=== PATIENT | female | born 1980 | race African-American/Black ===

== ENCOUNTER 2018-03-05 08:58 | Inpatient (IN) | payer OTHER ==
[2018-03-05 09:10] VITALS: BMI 39.1
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
[2018-03-05] MEDS ORDERED: MAGNESIUM HYDROX 2400MG/30ML ORAL SUSPENSION 30 ML CUP PO PRN (10:20)
[2018-03-05] MEDS ORDERED: MAGNESIUM CITRATE 300 ML BOTTLE PO PRN (10:20)
[2018-03-05] MEDS ORDERED: chlordiazePOXIDE HCL 25 MG CAPSULE PO PRN (10:20)
[2018-03-05] MEDS ORDERED: ACETAMINOPHEN 325 MG TABLET (FP) PO PRN (10:20)
[2018-03-05] MEDS ORDERED: MENTHOL/PHENOL 1 EACH UD MM PRN (10:20)
[2018-03-05] MEDS ORDERED: hydrOXYzine PAMOATE 50 MG CAPSULE (FP) PO PRN (10:20)
[2018-03-05] MEDS ORDERED: MAG HYDROX/AL HYDROX/SIMETH 30 ML UNIT-DOSE CUP PO PRN (10:20)
[2018-03-05] MEDS ORDERED: IBUPROFEN 400 MG TABLET (FP) PO PRN (10:20)
[2018-03-05] MEDS ORDERED: P-EPHED 60MG/TRIPROLIDI 2.5MG TABLET PO PRN (10:20)
[2018-03-05] MEDS ORDERED: LOPERAMIDE HCL 2 MG CAPSULE PO PRN (10:20)
[2018-03-05] MEDS ORDERED: guaiFENesin/D-METHORPHAN HB 10 ML UNIT-DOSE CUPS PO PRN (10:20)
--- NOTE | 2018-03-05 10:38 | CONSULT ---
[facility] Psychiatric Consult - Data Date of interview: 03/05/18 Admission source: [facility] Identifying data: This is a 37 years old obese female, single, homeless, on SSI support, with history of Schizophrenia. Bipolar Disorder, with psychiatric hopitalization hstirry, with alcohol and cocaine dependence,requesting detox, reporting withdrawal symptoms, Substance Abuse History: Smoking history: Current every day smoker. Have you smoked in the past 12 months: Yes. Aproximately how many cigarettes per day: 6. Cigars Per Day: 0. Hx Chewing Tobacco Use: No. Initiated information on smoking cessation: Yes. 'Breaking Loose' booklet given: 03/05/18. - Substance & Tx. History. Hx Alcohol Use: Yes. Hx Substance Use: Yes. Substance Use Type : Alcohol, Cocaine. Hx Substance Use Treatment: Yes (last 2013 [facility]). - Substances Abused. Alcohol. Route: Oral. Frequency: Daily. Amount used : 1 pint of liquor. Age of first use: 18. Date of Last Use: 03/04/18. Cocaine. Route: Smoking. Frequency: Daily. Amount used: 30$. Age of first use: 20. Date of Last Use: 03/04/18 Medical History: DM-II, Obesity Psychiatric History: Patient reports to carry Bypolar disorder/Schizohrenia, reports most recent psychiatric admission on 2018 at [facility], reportsmcurrently taking: Depakote 250mg po bid. [id number] po bid. Fanapt 4mg poqd, 8mg po qhs Physical/Sexual Abuse/Trauma History: Unclear Additional Comment: Depakote 250mg po bid. [id number] po bid. Fanapt 4mg poqd , 8mg po qhs Mental Status Exam - Mental Status Exam Alert and Oriented to: Person Cognitive Function: Fair Patient Appearance: Unkempt Mood: Suspicious, Anxious Affect: Constricted Patient Behavior: Cooperative Speech Pattern: Delayed Voice Loudness: Mildly Soft/Quiet Thought Process: Circumstantial Thought Disorder: Being Controlled Hallucinations: Denies Suicidal Ideation: Denies Insight/Judgement: Fair Sleep: Difficulty falling asleep Appetite: Weight gain Muscle strength/Tone: Mild Hypotonicity Gait/Station: Shuffling Additional Comments: Depakote 250mg po bid. [id number] po bid. Fanapt 4mg poqd, 8mg po qhs Psychiatric Findings - Problem List ([place] 1, 2,3) (1) Alcohol dependence with uncomplicated withdrawal Current Visit: Yes Status: Acute (2) Bipolar disorder Current Visit: Yes Status: Acute (3) Cocaine dependence Current Visit: Yes Status: Acute (4) Nicotine dependence Current Visit: Yes Status: Acute (5) Schizophrenia Current Visit: Yes Status: Acute - Initial Treatment Plan Initial Treatment Plan: Depakote 250mg po bid. [id number] po bid. Fanapt 4mg poqd, 8mg po qhs
[2018-03-05] MEDS ORDERED: HALOPERIDOL 5 MG TABLET (FP) PO PRN (11:35)
[2018-03-05] MEDS: chlordiazePOXIDE HCL 25 MG CAPSULE PO SCH ×3 (11:47→22:57)
[2018-03-05] MEDS: NICOTINE 21 MG/24 HOURS TOPICAL PATCH TD SCH (11:50)
--- NOTE | 2018-03-05 14:14 | EKG ---
Test Reason : Blood Pressure : / mmHG Vent. Rate : 063 BPM Atrial Rate : 063 BPM P-R Int : 188 ms QRS Dur : 088 ms QT Int : 394 ms P-R-T Axes : 062 069 068 degrees QTc Int : 403 ms NORMAL SINUS RHYTHM WITH SINUS ARRHYTHMIA NORMAL ECG NO PREVIOUS ECGS AVAILABLE Confirmed by LATRICIA ANNE, BHAVYA ([id number]) on 03/05/2018 2:14:11 PM Referred By: Confirmed By:BHAVYA ROME MD
[2018-03-05] MEDS: DIVALPROEX SODIUM 250 MG TABLET E.C. PO SCH ×2 (14:51→22:56)
[2018-03-05] MEDS: BENZTROPINE MESYLATE 1 MG TABLET (FP) PO SCH ×2 (14:51→22:56)
[2018-03-05] MEDS: metFORMIN HCL 500 MG TABLET (FP) PO SCH (18:23)
[2018-03-05 21:30] LABS: URINE APPEARANCE CLEAR; URINE BILIRUBIN NEGATIVE (<2.0 mg/dL); URINE COLOR LTYELLOW; URINE GLUCOSE (UA) NEGATIVE (NEGATIVE); URINE KETONE NEGATIVE (NEGATIVE); URINE LEUK ESTERASE NEGATIVE (NEGATIVE); URINE NITRITE NEGATIVE (NEGATIVE); URINE PROTEIN NEGATIVE (NEGATIVE); URINE UROBILINOGEN NEGATIVE mg/dL (0.2-1.0)
[2018-03-05] MEDS ORDERED: MELATONIN 5 MG TABLETS PO PRN (22:00)
[2018-03-05] MEDS: CALCIUM (OYSTER SHELL) 500 MG TABLET (FP) PO SCH (22:56)
[2018-03-05] MEDS: THIAMINE HCL 100 MG TABLET (FP) PO SCH (22:56)
[2018-03-06] MEDS: chlordiazePOXIDE HCL 25 MG CAPSULE PO SCH ×4 (05:41→23:59)
[2018-03-06] MEDS: metFORMIN HCL 500 MG TABLET (FP) PO SCH ×2 (08:00→17:23)
[2018-03-06 10:04] LABS: HEMOGLOBIN 12.1 GM/dL (10.7-15.3); MCHC 32.6 g/dl (32.0-36.0); MEAN CELL VOLUME 98.4 fl (80-96); MEAN PLT VOLUME 10.2 fl (7.5-11.1); PLATELET COUNT 241 K/MM3 (134-434); RBC 3.76 M/mm3 (3.60-5.2); RDW 13.1 % (11.6-15.6); WHITE BLOOD COUNT 5.7 K/mm3 (4.0-10.0)
[2018-03-06 10:52] LABS: ALBUMIN 3.2 g/dl (3.4-5.0); ALK PHOS 74 U/L (45-117); ANION GAP 5 MMOL/L (8-16); BILIRUBIN,TOTAL 0.6 mg/dL (0.2-1); BLOOD UREA NITROGEN 11 mg/dL (7-18); CALCIUM 8.8 mg/dL (8.5-10.1); CHLORIDE 106 mmol/L (98-107); CO2 29 mmol/L (21-32); CREATININE 0.7 mg/dL (0.55-1.3); GLUCOSE,RANDOM 79 mg/dL (74-106); SGOT/AST 9 U/L (15-37); SGPT/ALT 15 U/L (13-61); SODIUM 140 mmol/L (136-145); TOT PROT 7.1 g/dl (6.4-8.2)
[2018-03-06] MEDS: DIVALPROEX SODIUM 250 MG TABLET E.C. PO SCH ×2 (11:12→23:01)
[2018-03-06] MEDS: ATORVASTATIN CA 20 MG TABLET (FP) PO SCH (11:13)
[2018-03-06] MEDS: BENZTROPINE MESYLATE 1 MG TABLET (FP) PO SCH ×2 (11:13→23:02)
[2018-03-06] MEDS: PRENATAL VITAMINS W/ FOLIC ACID TABLET (FP) PO SCH (11:13)
[2018-03-06] MEDS: ASPIRIN COATED 81 MG TABLET.EC PO SCH (11:14)
[2018-03-06] MEDS: NICOTINE 21 MG/24 HOURS TOPICAL PATCH TD SCH (11:14)
[2018-03-06] MEDS: CALCIUM (OYSTER SHELL) 500 MG TABLET (FP) PO SCH ×2 (11:15→23:02)
--- NOTE | 2018-03-06 12:56 | PN ---
S CIWA - CIWA Score Nausea/Vomitin-Mild Nausea/No Vomiting Muscle Tremors: 1-None Visible, but [place] Anxiety: 1-Mildly Anxious Agitation: 1-Slight > Activity Paroxysmal Sweats: No Perspiration Orientation: 0-Oriented Tacttile Disturbances: 0-None Auditory Disturbances: 0-None Visual Disturbances: 0-None Headache: 0-None Present CIWA-Ar Total Score: 4 BHS Progress Note (SOAP) Subjective: Pt states overall doing OK. Admitted yesterday Vital Signs - 24 hr 03/05/18 03/05/18 03/06/18 13:12 17:47 00:30 Temperature 97.9 F 98.2 F Pulse Rate 75 93 H Respiratory 18 18 20 Rate Blood Pressure 118/71 148/79 03/06/18 03/06/18 07:26 09:29 Temperature 98.1 F 98.1 F Pulse Rate 93 H 103 H Respiratory 20 16 Rate Blood Pressure 132/70 122/77 Laboratory Tests 03/05/18 03/05/18 03/05/18 10:29 14:30 16:31 WBC RBC Hgb Hct MCV MCH MCHC RDW Plt Count MPV Sodium Potassium Chloride Carbon Dioxide Anion Gap BUN Creatinine Creat Clearance w eGFR POC Glucometer 127 131 Random Glucose Calcium Total Bilirubin AST ALT Alkaline Phosphatase Total Protein Albumin Urine Color Ltyellow Urine Appearance Clear Urine pH 6.0 Ur Specific [place] 1.023 Urine Protein Negative Urine Glucose (UA) Negative Urine Ketones Negative Urine Blood Negative Urine Nitrite Negative Urine Bilirubin Negative Urine Urobilinogen Negative Ur Leukocyte Esterase Negative Valproic Acid RPR Titer 03/06/18 03/06/18 03/06/18 05:43 06:30 06:30 WBC 5.7 RBC 3.76 Hgb 12.1 Hct 37.0 MCV 98.4 H MCH 32.0 MCHC 32.6 RDW 13.1 Plt Count 241 MPV 10.2 Sodium 140 Potassium 6.0 H Chloride 106 Carbon Dioxide 29 Anion Gap 5 L BUN 11 Creatinine 0.7 Creat Clearance w eGFR > 60 POC Glucometer 99 Random Glucose 79 Calcium 8.8 Total Bilirubin 0.6 AST 9 L ALT 15 Alkaline Phosphatase 74 Total Protein 7.1 Albumin 3.2 L Urine Color Urine Appearance Urine pH Ur Specific [place] Urine Protein Urine Glucose (UA) Urine Ketones Urine Blood Urine Nitrite Urine Bilirubin Urine Urobilinogen Ur Leukocyte Esterase Valproic Acid RPR Titer probably hemolyzed potassium 03/06/18 03/06/18 06:30 06:30 WBC RBC Hgb Hct MCV MCH MCHC RDW Plt Count MPV Sodium Potassium Chloride Carbon Dioxide Anion Gap BUN Creatinine Creat Clearance w eGFR POC Glucometer Random Glucose Calcium Total Bilirubin AST ALT Alkaline Phosphatase Total Protein Albumin Urine Color Urine Appearance Urine pH Ur Specific [place] Urine Protein Urine Glucose (UA) Urine Ketones Urine Blood Urine Nitrite Urine Bilirubin Urine Urobilinogen Ur Leukocyte Esterase Valproic Acid 14.0 L RPR Titer Nonreactive Aaa/Plan: admitted for alcohol/cocaine use disorder: continue alcohol detox protocol
[2018-03-06] MEDS ORDERED: SODIUM POLYSTYRENE SULFONATE 15 GM/60 ML BOTTLE PO ONE (16:02)
[2018-03-06] MEDS: THIAMINE HCL 100 MG TABLET (FP) PO SCH (23:58)
[2018-03-07] MEDS: chlordiazePOXIDE HCL 25 MG CAPSULE PO SCH (07:07)
[2018-03-07] MEDS: metFORMIN HCL 500 MG TABLET (FP) PO SCH ×2 (07:09→16:03)
--- NOTE | 2018-03-07 09:44 | PN ---
[facility] CIWA - CIWA Score Nausea/Vomitin Muscle Tremors: 2 Anxiety: 2 Agitation: 2 Paroxysmal Sweats: 2 Orientation: 0-Oriented Tacttile Disturbances: 1-Very Mild Itch/Numbness Auditory Disturbances: 0-None Visual Disturbances: 0-None Headache: 1-Very Mild CIWA-Ar Total Score: 12 S Progress Note (SOAP) Subjective: Interrupted sleep, restlessness and fatigue Objective: 03/07/18 09:40 Vital Signs 03/07/18 03/07/18 03/07/18 03:30 06:00 09:17 Temperature 97.7 F 98.4 F Pulse Rate 76 93 H Respiratory 16 20 18 Rate Blood Pressure 137/87 138/80 Laboratory Last Values WBC 5.7 K/mm3 (4.0-10.0) 03/06/18 06:30 RBC 3.76 M/mm3 (3.60-5.2) 03/06/18 06:30 Hgb 12.1 GM/dL (10.7-15.3) 03/06/18 06:30 Hct 37.0 % (32.4-45.2) 03/06/18 06:30 MCV 98.4 fl (80-96) H 03/06/18 06:30 MCH 32.0 pg (25.7-33.7) 03/06/18 06:30 MCHC 32.6 g/dl (32.0-36.0) 03/06/18 06:30 RDW 13.1 % (11.6-15.6) 03/06/18 06:30 Plt Count 241 K/MM3 (134-434) 03/06/18 06:30 MPV 10.2 fl (7.5-11.1) 03/06/18 06:30 Sodium 140 mmol/L (136-145) 03/06/18 06:30 Potassium 6.0 mmol/L (3.5-5.1) H 03/06/18 06:30 Chloride 106 mmol/L (98-107) 03/06/18 06:30 Carbon Dioxide 29 mmol/L (21-32) 03/06/18 06:30 Anion Gap 5 MMOL/L (8-16) L 03/06/18 06:30 BUN 11 mg/dL (7-18) 03/06/18 06:30 Creatinine 0.7 mg/dL (0.55-1.3) 03/06/18 06:30 Creat Clearance w eGFR > 60 (>60) 03/06/18 06:30 POC Glucometer 104 UNITS (80-120) 03/07/18 05:37 Random Glucose 79 mg/dL (74-106) 03/06/18 06:30 Calcium 8.8 mg/dL (8.5-10.1) 03/06/18 06:30 Total Bilirubin 0.6 mg/dL (0.2-1) 03/06/18 06:30 AST 9 U/L (15-37) L 03/06/18 06:30 ALT 15 U/L (13-61) 03/06/18 06:30 Alkaline Phosphatase 74 U/L (45-117) 03/06/18 06:30 Total Protein 7.1 g/dl (6.4-8.2) 03/06/18 06:30 Albumin 3.2 g/dl (3.4-5.0) L 03/06/18 06:30 Urine Color Ltyellow 03/05/18 14:30 Urine Appearance Clear 03/05/18 14:30 Urine pH 6.0 (5.0-8.0) 03/05/18 14:30 Ur Specific [place] 1.023 (1.010-1.035) 03/05/18 14:30 Urine Protein Negative (NEGATIVE) 03/05/18 14:30 Urine Glucose (UA) Negative (NEGATIVE) 03/05/18 14:30 Urine Ketones Negative (NEGATIVE) 03/05/18 14:30 Urine Blood Negative (NEGATIVE) 03/05/18 14:30 Urine Nitrite Negative (NEGATIVE) 03/05/18 14:30 Urine Bilirubin Negative (<2.0 mg/dL) 03/05/18 14:30 Urine Urobilinogen Negative mg/dL (0.2-1.0) 03/05/18 14:30 Ur Leukocyte Esterase Negative (NEGATIVE) 03/05/18 14:30 Valproic Acid 14.0 ug/ml (50-100) L 03/06/18 06:30 RPR Titer Nonreactive (NONREACTIVE) 03/06/18 06:30 Labs noted Alert, denies palpitation or any cardiac related symptoms Assessment: 03/07/18 09:42 Withdrawal sx Hyperkalemia possibly due to hemolysis Plan: BMP reordered, results pending Continue detox
[2018-03-07] MEDS: ASPIRIN COATED 81 MG TABLET.EC PO SCH (10:24)
[2018-03-07] MEDS: BENZTROPINE MESYLATE 1 MG TABLET (FP) PO SCH ×2 (10:24→23:05)
[2018-03-07] MEDS: PRENATAL VITAMINS W/ FOLIC ACID TABLET (FP) PO SCH (10:24)
[2018-03-07] MEDS: DIVALPROEX SODIUM 250 MG TABLET E.C. PO SCH ×2 (10:24→23:07)
[2018-03-07] MEDS: CALCIUM (OYSTER SHELL) 500 MG TABLET (FP) PO SCH ×2 (10:24→23:07)
[2018-03-07] MEDS: chlordiazePOXIDE 5 MG CAPSULE PO SCH ×3 (10:24→23:07)
[2018-03-07] MEDS: NICOTINE 21 MG/24 HOURS TOPICAL PATCH TD SCH (10:25)
[2018-03-07] MEDS: ATORVASTATIN CA 20 MG TABLET (FP) PO SCH (10:28)
--- NOTE | 2018-03-07 11:37 | PN ---
[facility] Progress Note Note: Patient is examined following a fall this morning. As per report, she was walking in the hallway when she fell. While going down, she hit her head against the wall as seen on camera although patient claims otherwise. PE HEENT: No bumps or bruises to scalp, others unremarkable Chest: Respirations non-labored Extremities:FROM, continues to ambulate without difficulty Skin:No lacerations or tears Neuro:A&0x3, no focal deficits A/P Fall, unwitnessed, review of camera shows patient hitting head on her way down. As per facility protocol, will transfer patient to ED for possible CT scan of head. Patient informed and agrees with POC.
[2018-03-07] MEDS: THIAMINE HCL 100 MG TABLET (FP) PO SCH (23:05)
[2018-03-08] MEDS: chlordiazePOXIDE 5 MG CAPSULE PO SCH (05:10)
[2018-03-08 07:32] VITALS: TEMP 98.2
[2018-03-08] MEDS: metFORMIN HCL 500 MG TABLET (FP) PO SCH (07:34)
--- NOTE | 2018-03-08 09:08 | DS ---
[facility] Detox Discharge Summary Admission Date: 03/05/18 Discharge Date: 03/08/18 - History Present History: Alcohol Dependence Additional Comments: 37 years old female admitted on 03/05/18 for alcohol withdrawal sx insists to leave the detox unit today without apparent reason alert oriented x 3 no acute distress, denies pain denies suicidal denies homocidal no self destructive behavior had showered and 90% breakfast Pertinent Past History: strong recommend community self help group and meeting suggesting go to ER and present lab report of K+ elevation patient wants to leave and agrees to consider ER if necessary and community 12 stepts offer alternative for alcohol withdrawal sx, "it is not that" patient insists to leave the detox unit speech clearly coherently steady gait - Physical Exam Results Vital Signs: Vital Signs Temperature 98.2 F 03/08/18 07:05 Pulse Rate 102 H 03/08/18 07:05 Respiratory Rate 20 03/08/18 07:05 Blood Pressure 113/68 03/08/18 07:05 O2 Sat by Pulse Oximetry (%) Pertinent Admission Physical Exam Findings: alcohol withdrawal sx Vital Signs Temperature 98.2 F 03/08/18 09:48 Pulse Rate 87 03/08/18 09:48 Respiratory Rate 18 03/08/18 09:48 Blood Pressure 113/64 03/08/18 09:48 O2 Sat by Pulse Oximetry (%) Laboratory Last Values WBC 5.7 K/mm3 (4.0-10.0) 03/06/18 06:30 RBC 3.76 M/mm3 (3.60-5.2) 03/06/18 06:30 Hgb 12.1 GM/dL (10.7-15.3) 03/06/18 06:30 Hct 37.0 % (32.4-45.2) 03/06/18 06:30 MCV 98.4 fl (80-96) H 03/06/18 06:30 MCH 32.0 pg (25.7-33.7) 03/06/18 06:30 MCHC 32.6 g/dl (32.0-36.0) 03/06/18 06:30 RDW 13.1 % (11.6-15.6) 03/06/18 06:30 Plt Count 241 K/MM3 (134-434) 03/06/18 06:30 MPV 10.2 fl (7.5-11.1) 03/06/18 06:30 Sodium 140 mmol/L (136-145) 03/06/18 06:30 Potassium 6.0 mmol/L (3.5-5.1) H 03/06/18 06:30 Chloride 106 mmol/L (98-107) 03/06/18 06:30 Carbon Dioxide 29 mmol/L (21-32) 03/06/18 06:30 Anion Gap 5 MMOL/L (8-16) L 03/06/18 06:30 BUN 11 mg/dL (7-18) 03/06/18 06:30 Creatinine 0.7 mg/dL (0.55-1.3) 03/06/18 06:30 Creat Clearance w eGFR > 60 (>60) 03/06/18 06:30 POC Glucometer 94 UNITS (80-120) 03/08/18 05:12 Random Glucose 79 mg/dL (74-106) 03/06/18 06:30 Calcium 8.8 mg/dL (8.5-10.1) 03/06/18 06:30 Total Bilirubin 0.6 mg/dL (0.2-1) 03/06/18 06:30 AST 9 U/L (15-37) L 03/06/18 06:30 ALT 15 U/L (13-61) 03/06/18 06:30 Alkaline Phosphatase 74 U/L (45-117) 03/06/18 06:30 Total Protein 7.1 g/dl (6.4-8.2) 03/06/18 06:30 Albumin 3.2 g/dl (3.4-5.0) L 03/06/18 06:30 Urine Color Ltyellow 03/05/18 14:30 Urine Appearance Clear 03/05/18 14:30 Urine pH 6.0 (5.0-8.0) 03/05/18 14:30 Ur Specific [place] 1.023 (1.010-1.035) 03/05/18 14:30 Urine Protein Negative (NEGATIVE) 03/05/18 14:30 Urine Glucose (UA) Negative (NEGATIVE) 03/05/18 14:30 Urine Ketones Negative (NEGATIVE) 03/05/18 14:30 Urine Blood Negative (NEGATIVE) 03/05/18 14:30 Urine Nitrite Negative (NEGATIVE) 03/05/18 14:30 Urine Bilirubin Negative (<2.0 mg/dL) 03/05/18 14:30 Urine Urobilinogen Negative mg/dL (0.2-1.0) 03/05/18 14:30 Ur Leukocyte Esterase Negative (NEGATIVE) 03/05/18 14:30 Valproic Acid 14.0 ug/ml (50-100) L 03/06/18 06:30 RPR Titer Nonreactive (NONREACTIVE) 03/06/18 06:30 lab noted K+ elevation discuss treatment for K+ elevation patient stated that she has an appointment with the psychiatrist this week risks of K+ elevation discussed with the patient patient stated that she is familiar with ER services and she is going to stay with her friend's house discuss low depakote level and important of therapeutic level - Treatment Hospital Course: Detox Protocol Followed, Responded well Patient has Accepted a Rehab Referral to: [facility] clinic/ - Medication Discharge Medications: Ambulatory Orders Albuterol Sulfate Inhaler - [Ventolin Hfa Inhaler -] 1 - 2 inh PO QID PRN Aspirin [Aspirin EC] 81 mg PO DAILY 03/05/18 Atorvastatin Ca [Lipitor] 20 mg PO DAILY 03/05/18 Benztropine Mesylate [Cogentin -] 2 mg PO BID #60 tablet 03/05/18 Calcium Carbonate [Oyster Shell Calcium] 500 mg PO BID 03/05/18 Divalproex [Depakote -] 250 mg PO BID #60 tablet.ec 03/05/18 Iloperidone [Fanapt] 4 mg PO DAILY #30 tablet 03/05/18 Iloperidone [Fanapt] 8 mg PO HS #30 tablet 03/05/18 Metformin HCl [Glucophage] 500 mg PO BID 03/05/18 - Diagnosis (1) Alcohol dependence with uncomplicated withdrawal Status: Acute (2) DM2 (diabetes mellitus, type 2) Status: Chronic Qualifiers: Diabetes mellitus moth exterminator insulin use: unspecified moth exterminator insulin use status Diabetes mellitus complication status: with unspecified complications Qualified Code(s): E11.8 - Type 2 diabetes mellitus with unspecified complications (3) Nicotine dependence Status: Acute Qualifiers: Nicotine product type: cigarettes Substance use status: in withdrawal Qualified Code(s): F17.213 - Nicotine dependence, cigarettes, with withdrawal (4) Schizophrenia Status: Acute Qualifiers: Schizophrenia type: unspecified Qualified Code(s): F20.9 - Schizophrenia, unspecified - AMA Did Patient Leave Against Medical Advice: Yes
[2018-03-08 09:49] VITALS: BP 113/64; PULSE 87
[2018-03-08] MEDS ORDERED: chlordiazePOXIDE HCL 10 MG CAPSULE PO SCH (11:00)
--- NOTE | 2018-03-09 23:56 | EKG ---
Test Reason : Blood Pressure : / mmHG Vent. Rate : 081 BPM Atrial Rate : 081 BPM P-R Int : 226 ms QRS Dur : 080 ms QT Int : 364 ms P-R-T Axes : 066 061 057 degrees QTc Int : 422 ms SINUS RHYTHM WITH 1ST DEGREE A-V BLOCK OTHERWISE NORMAL ECG WHEN COMPARED WITH ECG OF 05-MAR-2018 12:16, [place] INTERVAL HAS INCREASED Confirmed by DAKOTA ANNE, GAYLA ([id number]) on 03/09/2018 11:55:25 PM Referred By: Confirmed By:GAYLA DUNCAN MD
== END 2018-03-08 09:15 | disposition left against medical advice (07) | DRG 770 ==
LOC: YASAS 08:58 → Y6N 10:25
PROC: HZ2ZZZZ Detoxification Services for Substance Abuse Treatment (ICD-10-PCS; principal; 2018-03-05)
DX: F10.230 Alcohol dependence with withdrawal, uncomplicated (principal); F17.213 Nicotine dependence, cigarettes, with withdrawal; F20.9 Schizophrenia, unspecified; E87.5 Hyperkalemia; E11.9 Type 2 diabetes mellitus without complications; Z79.4 Long term (current) use of insulin; S09.8XXA Other specified injuries of head, initial encounter; W01.198A Fall on same level from slipping, tripping and stumbling with subsequent striking against other object, initial encounter; Y93.01 Activity, walking, marching and hiking; Y92.232 Corridor of hospital as the place of occurrence of the external cause; Y99.8 Other external cause status
CPT/HCPCS: 36415; 80053; 80164; 81003; 82962; 85027; 86593; 93005; 93010